=== PATIENT | female | born 1990 | race African-American/Black ===

== ENCOUNTER 2024-03-28 11:57 | Emergency (ER) | payer OTHER ==
[~2024-03-28] VITALS: Ht 167.6 cm; Wt 101.8 kg
[2024-03-28 13:25] LABS: BASO % 0.6 % (0.0-1.0); EOS # 0.1 10^3/uL (0.0-0.5); EOS % 0.8 % (0.0-3.0); HEMATOCRIT 33.3 % (36.0-47.0); HEMOGLOBIN 10.6 g/dl (12.0-15.5); LYMPH # 1.5 10^3/uL (1.5-5.0); LYMPH % 20.4 % (24.0-44.0); MEAN CORPUSCULAR HEMOGLOBIN 25.5 pg (27.0-33.0); MEAN CORPUSCULAR HGB CONC 31.8 g/dl (32.0-36.5); MONO # 0.3 10^3/uL (0.0-0.8); MONO % 3.9 % (2.0-8.0); NEUTROPHILS # 5.3 10^3/uL (1.5-8.5); NEUTROPHILS % 74.2 % (36.0-66.0); PLATELET COUNT, AUTOMATED 361 10^3/uL (150-450); RED BLOOD COUNT 4.16 10^6/uL (4.00-5.40); WHITE BLOOD COUNT 7.2 10^3/uL (4.0-10.0)
[2024-03-28 13:52] LABS: CK-MB VALUE MASS < 1.0 NG/ML (<3.6)
[2024-03-28 13:53] LABS: LIPASE 33 U/L (12-53)
[2024-03-28 13:55] LABS: ALBUMIN 3.8 G/DL (3.2-5.2); ALKALINE PHOSPHATASE 68 U/L (46-116); ALT/SGPT 22 U/L (7.0-40); AST/SGOT 20 U/L (<34); BILIRUBIN,DIRECT 0.1 MG/DL (<0.4); BILIRUBIN,TOTAL 0.5 MG/DL (0.3-1.2); BLOOD UREA NITROGEN 12 MG/DL (9-23); CALCIUM LEVEL 9.1 MG/DL (8.5-10.1); CARBON DIOXIDE LEVEL 28 MMOL/L (20-31); CHLORIDE LEVEL 108 MMOL/L (98-107); CREATININE FOR GFR 0.65 MG/DL (0.55-1.30); GLOMERULAR FILTRATION RATE > 60.0 (>60); GLUCOSE, FASTING 87 MG/DL (60-100); HCG, SERUM QUALITATIVE NEGATIVE (NEGATIVE); MAGNESIUM LEVEL 1.9 MG/DL (1.8-2.4); POTASSIUM SERUM 4.7 MMOL/L (3.5-5.1); SODIUM LEVEL 140 MMOL/L (136-145); TOTAL PROTEIN 7.2 G/DL (5.7-8.2)
[2024-03-28 13:56] LABS: THYROID STIMULATING HORMONE 1.354 uIU/ML (0.55-4.78)
[2024-03-28 13:59] LABS: CPK CREATINE PHOSPHOKINASE 117 U/L (34-145); MB/CK RELATIVE INDEX 0.85 (< OR =4)
[2024-03-28] MEDS: ONDANSETRON 4MG 2ML VIAL IV ONE (15:42)
[2024-03-28] MEDS: NS 1,000 ML IV ONE (15:42)
[2024-03-28] MEDS ORDERED: ONDANSETRON 4MG 2ML VIAL IV ONE (16:25)
[2024-03-28] MEDS: FAMOTIDINE 20MG/2ML VIAL IVP ONE (16:32)
[2024-03-28 16:42] LABS: CK-MB VALUE MASS < 1.0 NG/ML (<3.6)
[2024-03-28 16:45] LABS: CPK CREATINE PHOSPHOKINASE 120 U/L (34-145); MB/CK RELATIVE INDEX 0.83 (< OR =4)
[2024-03-28 18:13] VITALS: BP 116/63; TEMP 96.7; O2SAT 96
[2024-03-28] MEDS ORDERED: MIRA3350 PO (18:37)
[2024-03-28] MEDS ORDERED: HYDR1CRE30 TOP (18:37)
== END 2024-03-28 18:49 | disposition home or self-care (01) ==
LOC: EDBD 11:57 → M ED 11:57
DX: R07.89 Other chest pain (principal); K59.00 Constipation, unspecified; L30.9 Dermatitis, unspecified; Z79.899 Other long term (current) drug therapy
CPT/HCPCS: 71045; 74018; 80048; 80076; 81001; 82550; 82553; 83690; 83735; 84443; 84484; 84703; 85025; 93005; 96361; 96374; 96375; 99284; J2405; S0028